=== PATIENT | male | born 1935 | race Caucasian/White ===

== ENCOUNTER 2022-05-22 14:29 | Inpatient (IN) ==
[2022-05-22] MEDS ORDERED: ROCEPHIN 1 GRAM IV PREMIX 1 G/50 ML IV.SOLN. IV SCH (15:03)
[2022-05-22] MEDS ORDERED: NS 1,000 ML IV 1,000 ML IV SCH (15:03)
[2022-05-22 15:34] VITALS: BMI 17.4
--- NOTE | 2022-05-22 15:53 | DR.H&P ---
H&P History & Physical for Day of: H&P Date: 05/22/22 Chief Complaint Chief Complaint: Shortness of breath Allergies Allergies Allergy/AdvReac Type Severity Reaction Status Date / Time morphine Allergy Verified 05/22/22 15:13 History of Present Illness History of Present Illness: This is a pleasant 86-year-old white male well-known to me. He comes in the office this afternoon reporting increasing shortness of breath that started yesterday. Prior to that he was feeling normal and having no problems. He reports has been coughing up some blood tinged sputum. And he brings in a sample today when I look at it. It is definitely blood-tinged and I also note that he is satting 89% on 2 L nasal cannula. His heart rate is up at 135 however his lungs are fairly clear to auscultation. He had a procedure done last week in which he had a pacemaker/defibrillator placed but has done well ever since then. Given his age and his chronic medical problems and his history chronic congestive heart failure I like to go ahead and put him in the hospital and start him on prophylactic IV antibiotics and check a BNP as well as a chest x-ray to see if this shows any reason for his hypoxia and tachycardia. Past Medical History Past Medical History: Anxiety, CHF, Coronary Artery Disease, Depression and GERD Additional Medical History: Peripheral artery disease, anorexia, ambulatory dysfunction, urinary bladder trouble, hiatal hernia Past Surgical History Surgical History: Ortho Surgery and Other Additional Surgical History: Status post pacemaker/defibrillator placement Social History Alcohol Use: None Drug Use: None Medications Home Medications: morphine Allergy (Verified 05/22/22 15:13) Labs Result Diagrams: 05/23/22 09:07 05/23/22 09:07 Review of Systems Constitutional: Weakness and Malaise Eyes: No Symptoms Reported ENT: No Symptoms Reported Respiratory: Cough, Shortness of Breath, Hemoptysis, SOB with Excertion and Sputum Cardiovascular: No Symptoms Reported Gastrointestinal: No Symptoms Reported Genitourinary: No Symptoms Reported Musculoskeletal: No Symptoms Reported Skin: No Symptoms Reported Neurological: No Symptoms Reported Physical Exam Vital Signs: Temperature 97.9 F Pulse Rate [Apical] 109 Respiratory Rate 32 Blood Pressure [Left Arm] 120/74 O2 Sat by Pulse Oximetry 93 Oriented: Normal, Time, Person and Place Eyes: Normal Ear: Normal Nose: Normal Throat: Normal Respiratory: Clear Throughout Cardiovascular: Normal Auscultation: Bowel Sounds: Normal Palpation: Normal Tenderness: Normal Skin: Normal Musculoskeletal: Normal Psychiatric: Normal Mood Description: Calm Affect: Normal Speech Pattern: Clear and Appropriate Assessment/Plan (1) Hemoptysis: Status: Acute Plan: Chest check chest x-ray and sputum culture. Start IV prophylactic antibiotics which include doxycycline and Rocephin. (2) Hypoxia: Status: Acute Plan: Supplemental O2 via nasal cannula. (3) Sinus tachycardia: Status: Acute Plan: Placed patient on quality assurance monitor to monitor for dysrhythmias. Slow IV hydration in case patient is dehydrated. (4) Congestive heart failure: Status: Acute Plan: Check chest x-ray and BNP. Review H&P Reviewed: Yes Patient was examined?: Yes
[2022-05-22 16:06] LABS: BASOPHILS # (AUTO) 0.1 X10^3/uL (0.0-0.1); BASOPHILS % (AUTO) 0.8 % (0.2-1.0); EOSINOPHILS % (AUTO) 0.1 % (0.9-2.9); HEMATOCRIT 30.4 % (42.0-54.0); LYMPHOCYTES # (AUTO) 1.9 X10^3/uL (1.3-2.9); LYMPHOCYTES % (AUTO) 21.3 % (21.0-51.0); MEAN CORPUSCULAR HGB CONC 32.9 g/dL (33.0-35.0); MEAN CORPUSCULAR VOLUME 79.1 fL (80.0-100.0); MEAN PLATELET VOLUME 9.1 fL (7.4-11.0); MONOCYTES # (AUTO) 0.7 x10^3/uL (0.3-0.8); MONOCYTES % (AUTO) 7.6 % (0.0-13.0); NEUTROPHILS # (AUTO) 6.2 x10^3/uL (2.2-4.8); NEUTROPHILS % (AUTO) 70.2 % (42.0-75.0); RED BLOOD COUNT 3.85 X10^6/uL (4.7-6.0); RED CELL DISTRIBUTION WIDTH 28.8 % (11.6-16.5); WHITE BLOOD COUNT 8.8 X10^3/uL (3.6-10.0)
[2022-05-22 16:16] LABS: ALANINE AMINOTRANSFERASE 17 Units/L (12-78); ALBUMIN 2.9 g/dL (3.4-5.0); ALKALINE PHOSPHATASE 96 Units/L (46-116); ASPARTATE AMINO TRANSFERASE 37 Units/L (15-37); BLOOD UREA NITROGEN 42 mg/dL (7-18); CALCIUM 8.4 mg/dL (8.5-10.1); CARBON DIOXIDE 22.7 mmol/L (21-32); CHLORIDE 94 mmol/L (98-107); COR CA(FOR HYPOALB) 9.3 mg/dL (8.5-10.1); COR NA(FOR HYPERGLY) 131 mmol/L (136-145); CREATININE 2.44 mg/dL (0.70-1.30); SODIUM 129 mmol/L (136-145); TOTAL PROTEIN 6.2 g/dL (6.4-8.2); eGFR NON BLACK RACES 27 (>60)
[2022-05-22] MEDS ORDERED: ZOFRAN INJ 4 MG VIAL IVP PRN (16:16)
[2022-05-22] MEDS ORDERED: VALIUM PO PRN (16:49)
[2022-05-22 17:01] LABS: OVALOCYTES PRESENT
[2022-05-22 17:02] LABS: SCHISTOCYTES PRESENT
[2022-05-22 17:03] LABS: ANISOCYTOSIS 3+; HYPOCHROMASIA SLIGHT; MICROCYTOSIS SLIGHT; PLATELET MORPHOLOGY COMMENT NORMAL (NORMAL)
[2022-05-22] MEDS: VIBRAMYCIN 100 MG in D5W 250 ML IV 250 ML IV SCH ×2 (17:13→21:38)
[2022-05-22] MEDS: ROCEPHIN VIAL 1 GRAM 1 G in NS 100 ML IV 100 ML IV SCH (17:14)
[2022-05-22] MEDS: LASIX IVP SCH (17:26)
[2022-05-22] MEDS: MICRO K EXTEN CAP 10 MEQ PO SCH (17:26)
[2022-05-22] MEDS ORDERED: NEXTERONE IV 150 MG PREMIX* 150 MG/100 ML BAG IV ONE ×2 (18:11→18:17)
[2022-05-22] MEDS ORDERED: NEXTERONE IV 360 MG PREMIX* 360 MG/200 ML BAG IV ONE ×2 (18:16→18:30)
[2022-05-22] MEDS ORDERED: NITRO-BID OINT 2% UD (E.R. USE ONLY) TD ONE (18:45)
[2022-05-22] MEDS ORDERED: HEPARIN SODIUM IN D5W 25,000 UNITS/500 ML BAG IV PRN (18:52)
[2022-05-22 19:48] LABS: INR 1.39 (0.8-1.3)
[2022-05-22] MEDS: DILAUDID INJ IVP PRN (19:54)
[2022-05-22] MEDS ORDERED: HEPARIN SODIUM INJ 5000 UNITS IVP ONE (20:22)
[2022-05-22] MEDS: CORDARONE TAB 200 MG PO SCH (20:59)
[2022-05-23] MEDS ORDERED: NEXTERONE IV 360 MG PREMIX* 360 MG/200 ML BAG IV PRN (00:30)
[2022-05-23] MEDS: DILAUDID INJ IVP PRN ×2 (02:39→14:49)
[2022-05-23 03:33] LABS: BILIRUBIN,URINE 1+ (NEGATIVE); BLOOD/HEMOGLOBIN,URINE 2+ (NEGATIVE); GLUCOSE, URINE NEGATIVE (NEGATIVE); KETONES,URINE 1+ (NEGATIVE); LEUKOCYTE ESTERASE ,URINE 1+ (NEGATIVE); NITRITES,URINE NEGATIVE (NEGATIVE); PROTEIN,URINE 3+ (NEGATIVE); UROBILINOGEN,URINE 1+ (NORMAL)
[2022-05-23 03:38] LABS: APPEARANCE,URINE CLEAR (CLEAR); COLOR,URINE AMBER (YELLOW)
[2022-05-23 03:39] LABS: BACTERIA,URINE TRACE /HPF (NEGATIVE); RBC,URINE 0-2 /HPF (0-3); SQUAMOUS EPITHELIAL CELL,UR RARE /HPF (NEGATIVE)
[2022-05-23] MEDS: MICRO K EXTEN CAP 10 MEQ PO SCH (05:05)
[2022-05-23] MEDS: LASIX IVP SCH (05:05)
--- NOTE | 2022-05-23 06:18 | RAD ---
HISTORYHypoxia, tachycardiaSTUDYChest AP [id number]/[id number] e is a pacemaker present on the left obscuring a portion of the left upper lobe. Patient is status post median sternotomy and CABG. The heart is enlarged. No definite congestive heart failure is noted. There is subsegmental atelectasis in the right upper lobe. No definite acute infiltrates or pleural effusions are identified. Bony thorax is unremarkable.IMPRESSIONCardiomegaly without congestive heart failureNo definite infiltratesLarge area of subsegmental atelectasis right upper lobeElectronically signed by: SHYANNE NESBITT (May 23, 2022 06:16:48)
[2022-05-23] MEDS: CORDARONE TAB 200 MG PO SCH (08:13)
[2022-05-23] MEDS: ROCEPHIN VIAL 1 GRAM 1 G in NS 100 ML IV 100 ML IV SCH (08:14)
[2022-05-23] MEDS ORDERED: LASIX IVP ONE (08:29)
[2022-05-23] MEDS ORDERED: VALIUM PO PRN (08:31)
[2022-05-23] MEDS ORDERED: DUONEB 0.5 MG/3 MG (3 mL) NEB ONE ×2 (08:46→20:22)
[2022-05-23] MEDS: VIBRAMYCIN 100 MG in D5W 250 ML IV 250 ML IV SCH (08:50)
[2022-05-23] MEDS ORDERED: MUCOMYST 20% 200 MG/ML NEB SCH (09:00)
[2022-05-23] MEDS ORDERED: DUONEB 0.5 MG/3 MG (3 mL) NEB SCH (09:00)
[2022-05-23] MEDS ORDERED: RANEXA PO SCH (09:00)
[2022-05-23 09:46] LABS: BASOPHILS # (AUTO) 0.1 X10^3/uL (0.0-0.1); BASOPHILS % (AUTO) 0.5 % (0.2-1.0); HEMATOCRIT 28.3 % (42.0-54.0); HEMOGLOBIN 9.1 g/dL (13.5-18.0); LYMPHOCYTES # (AUTO) 2.4 X10^3/uL (1.3-2.9); LYMPHOCYTES % (AUTO) 18.1 % (21.0-51.0); MEAN CORPUSCULAR HEMOGLOBIN 25.6 pg (27.0-34.0); MEAN CORPUSCULAR HGB CONC 32.2 g/dL (33.0-35.0); MEAN CORPUSCULAR VOLUME 79.6 fL (80.0-100.0); MEAN PLATELET VOLUME 9.2 fL (7.4-11.0); MONOCYTES # (AUTO) 0.8 x10^3/uL (0.3-0.8); MONOCYTES % (AUTO) 5.8 % (0.0-13.0); NEUTROPHILS % (AUTO) 75.6 % (42.0-75.0); RED BLOOD COUNT 3.56 X10^6/uL (4.7-6.0); WHITE BLOOD COUNT 13.2 X10^3/uL (3.6-10.0)
[2022-05-23 10:22] LABS: ALANINE AMINOTRANSFERASE 458 Units/L (12-78); ALBUMIN 2.7 g/dL (3.4-5.0); ALKALINE PHOSPHATASE 92 Units/L (46-116); ASPARTATE AMINO TRANSFERASE 798 Units/L (15-37); BLOOD UREA NITROGEN 45 mg/dL (7-18); CALCIUM 7.9 mg/dL (8.5-10.1); CARBON DIOXIDE 22.4 mmol/L (21-32); CHLORIDE 93 mmol/L (98-107); COR CA(FOR HYPOALB) 8.9 mg/dL (8.5-10.1); COR NA(FOR HYPERGLY) 129 mmol/L (136-145); CREATINE KINASE 70 Units/L (39-308); CREATININE 3.13 mg/dL (0.70-1.30); SODIUM 128 mmol/L (136-145); TOTAL PROTEIN 5.8 g/dL (6.4-8.2); eGFR NON BLACK RACES 20 (>60)
[2022-05-23 10:34] LABS: ANISOCYTOSIS 3+; HYPOCHROMASIA SLIGHT; PLATELET MORPHOLOGY COMMENT NORMAL (NORMAL)
[2022-05-23 10:35] LABS: MICROCYTOSIS SLIGHT; OVALOCYTES SLIGHT; SCHISTOCYTES SLIGHT
[2022-05-23] MEDS ORDERED: HEPARIN SODIUM INJ 5000 UNITS IVP ONE (10:45)
--- NOTE | 2022-05-23 11:01 | RAD ---
HISTORYHYPOXIA, TACHYCARDIASTUDYCHEST, 1 [id number]/[id number] opacity in the left and right lung are not significantly changed. Findings are focal and could be atelectasis or pneumonia. Small bilateral effusions. No pneumothorax.Cardiomegaly is unchanged.Bones are unremarkable. [Left subclavian ICD is present with leads in expected location. Median sternotomy wires are present. EKG leads are noted. ]IMPRESSION1. Unchanged atelectasis or pneumonia2. Unchanged pleural effusionsElectronically signed by: Teofilo Pedro (May 23, 2022 11:00:29)
--- NOTE | 2022-05-23 11:23 | PCM.PROG ---
Progress Note Progress Note for Day of Date of Exam: 05/23/22 Past Medical Family Social History Allergies: Allergies morphine Allergy (Verified 05/22/22 15:13) Vital Signs and I&O's Vital Signs: Temperature 97.8 F Pulse Rate [Apical] 104 Pulse Rate 101 Respiratory Rate 28 Blood Pressure [Left Arm] 132/62 Blood Pressure 100/56 O2 Sat by Pulse Oximetry 100 Intake and Output: Intake & Output 05/20/22 05/21/22 05/22/22 05/23/22 11:59 11:59 11:59 11:59 Intake Total 870 / 870 Output Total Balance 860 / 860 Physical Exam Oriented: Normal, Time, Person and Place Eyes: Normal Ear: Normal Nose: Normal Throat: Normal Cardiovascular: Normal Auscultation: Bowel Sounds: Normal Tenderness: Normal Skin: Normal Musculoskeletal: Normal Psychiatric: Normal Mood Description: Calm Affect: Normal Speech Pattern: Clear Laboratory and Diagnostics Result Diagrams: 05/23/22 09:07 05/23/22 09:07 Labs: 05/22/22 15:15 Sputum - Expectorated Sputum Sputum Culture - Preliminary 05/22/22 15:15 Sputum - Expectorated Sputum - Final Laboratory WBC 13.2 X10^3/uL (3.6-10.0) H 05/23/22 09:07 RBC 3.56 X10^6/uL (4.7-6.0) L 05/23/22 09:07 Hgb 9.1 g/dL (13.5-18.0) L 05/23/22 09:07 Hct 28.3 % (42.0-54.0) L 05/23/22 09:07 MCV 79.6 fL (80.0-100.0) L 05/23/22 09:07 MCH 25.6 pg (27.0-34.0) L 05/23/22 09:07 MCHC 32.2 g/dL (33.0-35.0) L 05/23/22 09:07 RDW 29.0 % (11.6-16.5) H 05/23/22 09:07 Plt Count 238 X10^3/uL (150.0-450.0) 05/23/22 09:07 Plt Count Comment Adequate (ADEQUATE) 05/23/22 09:07 MPV 9.2 fL (7.4-11.0) 05/23/22 09:07 Neut % (Auto) 75.6 % (42.0-75.0) H 05/23/22 09:07 Lymph % (Auto) 18.1 % (21.0-51.0) L 05/23/22 09:07 [place] % (Auto) 5.8 % (0.0-13.0) 05/23/22 09:07 Eos % (Auto) 0.0 % (0.9-2.9) L 05/23/22 09:07 Baso % (Auto) 0.5 % (0.2-1.0) 05/23/22 09:07 Neut # (Auto) 10.0 x10^3/uL (2.2-4.8) H 05/23/22 09:07 Lymph # (Auto) 2.4 X10^3/uL (1.3-2.9) 05/23/22 09:07 [place] # (Auto) 0.8 x10^3/uL (0.3-0.8) 05/23/22 09:07 Eos # (Auto) 0.0 x10^3/uL (0.0-0.2) 05/23/22 09:07 Baso # (Auto) 0.1 X10^3/uL (0.0-0.1) 05/23/22 09:07 Absolute Nucleated RBC 0.1 /100WBC 05/23/22 09:07 Plt Morphology Comment Normal (NORMAL) 05/23/22 09:07 RBC Morphology Abnormal (NORMAL) 05/23/22 09:07 Hypochromasia Slight A 05/23/22 09:07 Anisocytosis 3+ A 05/23/22 09:07 Microcytosis Slight A 05/23/22 09:07 Ovalocytes Slight A 05/23/22 09:07 Acanthocytes (Spur) Slight 05/23/22 09:07 Schistocytes Slight A 05/23/22 09:07 PT 16.6 SECONDS (11.8-14.3) 05/22/22 19:20 INR Target Range - 05/22/22 19:20 INR 1.39 (0.8-1.3) H 05/22/22 19:20 APTT 42.8 SECONDS (22.9-36.5) H 05/23/22 09:07 PTT Comment - 05/23/22 09:07 Sodium 128 mmol/L (136-145) L 05/23/22 09:07 Corrected Sodium 129 mmol/L (136-145) L 05/23/22 09:07 Potassium 5.9 mmol/L (3.5-5.1) H 05/23/22 09:07 Chloride 93 mmol/L (98-107) L 05/23/22 09:07 Carbon Dioxide 22.4 mmol/L (21-32) 05/23/22 09:07 BUN 45 mg/dL (7-18) H 05/23/22 09:07 Creatinine 3.13 mg/dL (0.70-1.30) H 05/23/22 09:07 Est GFR (MDRD) Af Amer 24 (>60) L 05/23/22 09:07 Est GFR (MDRD) Non-Af 20 (>60) L 05/23/22 09:07 Glucose 136 mg/dL (65-99) H 05/23/22 09:07 Calcium 7.9 mg/dL (8.5-10.1) L 05/23/22 09:07 Corrected Calcium 8.9 mg/dL (8.5-10.1) 05/23/22 09:07 Total Bilirubin 0.80 mg/dL (0.2-1.0) 05/23/22 09:07 AST 798 Units/L (15-37) H 05/23/22 09:07 ALT 458 Units/L (12-78) H 05/23/22 09:07 Alkaline Phosphatase 92 Units/L (46-116) 05/23/22 09:07 Creatine Kinase 70 Units/L (39-308) 05/23/22 09:07 Troponin I High Sens 646.5 ng/L (4.0-60.0) H* 05/23/22 09:07 B-Natriuretic Peptide > 5000 pg/mL (0-79) H* 05/23/22 09:07 Total Protein 5.8 g/dL (6.4-8.2) L 05/23/22 09:07 Albumin 2.7 g/dL (3.4-5.0) L 05/23/22 09:07 Globulin 3.1 g/dL (2.5-4.5) 05/23/22 09:07 Albumin/Globulin Ratio 0.9 Ratio (1.1-2.1) L 05/23/22 09:07 Specimen Type Catherized urine 05/23/22 02:30 Urine Color [place] (YELLOW) 05/23/22 02:30 Urine Appearance Clear (CLEAR) 05/23/22 02:30 Urine pH 5.0 (5.0 - 8.0) 05/23/22 02:30 Ur Specific [place] 1.025 (1.000-1.030) 05/23/22 02:30 Urine Protein 3+ (NEGATIVE) 05/23/22 02:30 Urine Glucose (UA) Negative (NEGATIVE) 05/23/22 02:30 Urine Ketones 1+ (NEGATIVE) 05/23/22 02:30 Urine Blood 2+ (NEGATIVE) 05/23/22 02:30 Urine Nitrite Negative (NEGATIVE) 05/23/22 02:30 Urine Bilirubin 1+ (NEGATIVE) 05/23/22 02:30 Urine Urobilinogen 1+ (NORMAL) 05/23/22 02:30 Ur Leukocyte Esterase 1+ (NEGATIVE) 05/23/22 02:30 Urine RBC 0-2 /HPF (0-3) 05/23/22 02:30 Urine WBC 0-2 /HPF (0-5) 05/23/22 02:30 Ur Squamous Epith Cells Rare /HPF (NEGATIVE) 05/23/22 02:30 Urine Bacteria Trace /HPF (NEGATIVE) 05/23/22 02:30 Ur Culture Indicated? Yes/culture set up 05/23/22 02:30 SARS-CoV-2 (PCR) Positive (NEGATIVE) A 05/22/22 15:35 Radiology Reviewed: Yes EKG Reviewed: Yes Compared to prior EKG Dated: 05/22/22 Rate: 168 Rhythm: VT (Wide-complex tachycardia) ST: Ischemia Plan (1) Hemoptysis: Status: Acute Narrative Support Text: Hemoptysis is secondary to underlying pneumonia. Plan: Continue IV doxycycline and Rocephin. (2) Hypoxia: Status: Acute Plan: Supplemental O2 via nasal cannula. (3) Sinus tachycardia: Status: Acute Plan: Patient is having runs of V. tach. Continue amiodarone. (4) Congestive heart failure: Status: Acute Narrative Support Text: BNP is still greater than 5000 however he has developed cardiorenal syndrome. Plan: Discussed comfort measures with patient's family. Patient is currently a DNR. (5) Bilateral pneumonia: Status: Acute Plan: Continue IV Rocephin and doxycycline at this time. (6) Hyperkalemia: Status: Acute Narrative Support Text: Potassium has gone up to 5.9 this morning. Is also developed acute on chronic renal failure. Patient has also developed cardiorenal syndrome. Plan: Kayexalate p.o. DC oral potassium. (7) Acute renal failure: Status: Acute (8) Cardiorenal syndrome with renal failure: Status: Acute Plan: Discussed comfort measures with family. Patient has a very poor prognosis overall. (9) Chronic congestive heart failure: Status: Acute (10) Ventricular tachycardia: Status: Acute Plan: Continue amiodarone.
[2022-05-23] MEDS ORDERED: ROBINUL IVP PRN (15:06)
[2022-05-23] MEDS: VALIUM INJ IVP PRN (18:06)
[2022-05-23] MEDS ORDERED: LASIX IVP SCH (21:00)
[2022-05-24] MEDS: DILAUDID INJ IVP PRN (00:46)
[2022-05-24] MEDS: VALIUM INJ IVP PRN (02:59)
[2022-05-24 05:14] VITALS: BP 79/47
== END 2022-05-24 08:06 | disposition expired | DRG 204 ==
LOC: ICU 14:39
PROVIDERS: ADMIT Family Medicine; ATTEND Family Medicine
DX: R77.8 Other specified abnormalities of plasma proteins; I50.9 Heart failure, unspecified; J18.8 Other pneumonia, unspecified organism; R06.02 Shortness of breath; Z66 Do not resuscitate; N17.8 Other acute kidney failure; I25.10 Atherosclerotic heart disease of native coronary artery without angina pectoris; Z95.0 Presence of cardiac pacemaker; I47.2 Ventricular tachycardia; I13.0 Hypertensive heart and chronic kidney disease with heart failure and stage 1 through stage 4 chronic kidney disease, or unspecified chronic kidney disease; Z51.5 Encounter for palliative care; E87.5 Hyperkalemia; I46.9 Cardiac arrest, cause unspecified; U07.1 COVID-19; R04.2 Hemoptysis